=== PATIENT | female | born 1980 | race Caucasian/White ===

== ENCOUNTER → 2025-10-10 08:38 | Outpatient (BNVA) | payer BC, SELFPAY | PROVIDERS: Family Provider Family Medicine; PCP Family Medicine; Visit Provider Family Medicine | DX: G62.9 Polyneuropathy, unspecified (principal); G43.909 Migraine, unspecified, not intractable, without status migrainosus; N95.1 Menopausal and female climacteric states; E83.42 Hypomagnesemia; R79.89 Other specified abnormal findings of blood chemistry | CPT/HCPCS: 80053; 80061; 82306; 82607; 82670; 82746; 83735; 84144; 84439; 84443; 85025 ==